=== PATIENT | female | born 1990 | race Caucasian/White ===

== ENCOUNTER 2016-05-31 18:04 | Inpatient (IN) | payer OTHER ==
[~2016-05-31] VITALS: Ht 180.3 cm; Wt 68.1 kg
[2016-05-31] MEDS ORDERED: [UNRECOGNIZED DRUG - CODE] GT (18:32)
[2016-05-31] MEDS ORDERED: OMEP40CA2 PO (18:32)
[2016-05-31] MEDS ORDERED: MULT1TAB10 PO (18:32)
[2016-05-31] MEDS ORDERED: DULO30CA PO (18:32)
[2016-05-31] MEDS ORDERED: TRAZ100T4 PO (18:32)
[2016-05-31] MEDS ORDERED: FAMO1TAB25 PO (18:32)
[2016-05-31] MEDS ORDERED: [UNRECOGNIZED DRUG - CODE] PO (20:45)
[2016-05-31] MEDS ORDERED: PATIENT COMMENT (20:45)
[2016-05-31] MEDS ORDERED: VITMTA PO (20:45)
[2016-05-31 22:07] VITALS: BP 124/80
[2016-05-31] MEDS ORDERED: traZODone 50 MG TAB PO PRN (23:45)
[2016-05-31] MEDS ORDERED: ACETAMINOPHEN TAB 650MG DOSE (2X325MG) PO PRN (23:45)
[2016-05-31] MEDS ORDERED: MAALOX 30 ML SUSP *UDC PO PRN (23:45)
[2016-05-31] MEDS ORDERED: MOM 30ML SUSPENSION UDC PO PRN (23:45)
[2016-06-01 06:14] VITALS: BP 101/57
[2016-06-01] MEDS: TRINESSA LO PO SCH (09:00)
--- NOTE | 2016-06-01 09:25 | HPEPDOC ---
Medical History and Physical Date of Admission May 31, 2016 at 21:54 History and Physical PCP: Alo LOPEZ ATTENDING: Dr. Sarthak Song HPI: 25yoF admitted to [facility] for unspecified depressive disorder, being medically examined today. No acute medical complaints today. Denies any fevers, chills, weakness, fatigue, ADAMS, CP, SOB, cough, palpitations, abdominal pain, N/V /D or changes in bowel or bladder habits. PMHx: Depression Anxiety H/O SI GERD Insomnia Crohn's disease. Dr. Telles IBS Fibromyalgia Tobacco use PSHX: Denies SOCHX: Resides in: [facility] Marital Status: Single Kids: None Employment: Convenience store employee Tobacco use: One half pack per day ETOH: Patient is reluctant to answer, endorses 2 times per week unknown amount. Illicit Drugs: Denies IV Drug Use: Denies Tattoos done unprofessionally: Denies FAMHX: Mother: Alive,MS Father: Unknown Siblings: One sister Alive, well Children: None Unexpected deaths due to medical reasons: None. ROS: As noted in HPI, otherwise 11pt ROS of systems reviewed and remarkable only for LMP unknown. PE: GEN: 25yoF, appears stated age. Well-nourished, well developed. No acute distress. Alert and oriented x 3. Pt with flat affect and reluctant to make eye contact. Reluctant to answer questions. HEENT: Normocephalic, atraumatic. Pupils are equal, round, and reactive to light. Extraocular movements are intact. No nystagmus appreciated. Sclera are nonicteric. Conjunctiva without injection. Nose midline. Nasal turbinates without bogginess. EACs both patent BL. TMs both visualized and clarke with good cone of light, no bulging or erythema. No facial asymmetry. Moist mucous membranes. Dentition fair. Pharynx pink and moist, no cobblestoning. Neck supple , trachea midline. No lymphadenopathy or thyromegaly appreciated. CHEST: Regular rate and rhythm, +S1, +S2 LUNGS: Clear to auscultation bilaterally. No wheezes, rales, or rhonchi. Breathing appears symmetric and easy. Patient is speaking in full sentences. No accessory muscle use. ABD: Round, soft, non-tender, non-distended. +Bowel sounds throughout. No rebound or guarding. No costovertebral angle tenderness. EXT: Pulses 2+ bilaterally dorsalis pedis and radial. No lower extremity edema appreciated. SKIN: [place], dry, warm. Capillary refill <2sec. No rashes. NEURO: Alert and oriented x 3. Cranial nerves III-XII are intact. No focal deficits appreciated. EKG: pending. A&P: 25yoF admitted to [facility] for unspecified depressive disorder 1. Psych. Plan per Psychiatry. Obtain baseline EKG to assure the safety of psychiatric medications as they can prolong the QT interval. 2. Nicotine dependence. Patch available. 3. GERD. Continue PPI/H2 aaron. 4. Follow up with PCP on discharge. 5. Crohn's disease. Continue Dipentum. Continue outpatient follow-up with Dr. Telles. 6. Med rec with pharmacy is pending this AM. 7. Staff member Nadja present throughout exam. Vital Signs Vital Signs Label Value Date Time Patient Temperature 98.7 degrees F 06/01/16613 Temperature Source Tympanic 06/01/16613 Pulse 70 06/01/1614 Respiratory Rate 18 bpm 06/01/1614 Blood Pressure Assessment 101/57 (72) 06/01/1614 Bedside Pulse Oximetry 100 % 05/31/162149 Item Value Date Time Oxygen Delivery Method Room Air 05/31/162149 Laboratory Data Labs 24H Laboratory Tests 2 05/31/16 19:32: Acetaminophen Level < 2.0L, Aspartate Amino Transf (AST/SGOT) 17, Alanine Aminotransferase (ALT/SGPT) 16, Alkaline Phosphatase 74, Total Bilirubin 0.3, Direct Bilirubin 0.1, Albumin 3.9, Albumin/Globulin Ratio 1.05, Anion Gap 3L, Calcium Level 8.9, Ethyl Alcohol Level < 0.003, Glomerular Filtration Rate > 60.0, Human Chorionic Gonadotropin, Qual NEGATIVE, Salicylates Level 2.9L, Thyroid Stimulating Hormone (TSH) 0.579, Total Protein 7.6 05/31/16 20:14: Urine Amphetamines Screen NEGATIVE, Urine Benzodiazepines Screen NEGATIVE, Urine Opiates Screen NEGATIVE, Urine Barbiturates Screen NEGATIVE, Urine Cannabinoids Screen NEGATIVE, Urine Cocaine Metabolite Screen NEGATIVE, Urine Methadone Screen NEGATIVE, Urine Phencyclidine Screen NEGATIVE CBC/BMP Laboratory Tests 05/31/16 19:32 Red Blood Count 4.42, Mean Corpuscular Volume 88.8, Mean Corpuscular Hemoglobin 30.2, Mean Corpuscular Hemoglobin Concent 34.0, Red Cell Distribution Width 11.9 Home Medications Scheduled Duloxetine Hcl (Cymbalta) Unknown Strength Cap Unknown Dose PO DAILY Famotidine (Famotidine) Unknown Strength Tab Unknown Dose PO QHS Multivitamins *SMC STOCKED* (Thera M Plus *SMC STOCKED*) 1 Tab Tab 1 TAB PO DAILY Olsalazine Sodium (Dipentum) 250 Mg Cap 500 MG PO BID Omeprazole (Omeprazole) Unknown Strength Cap Unknown Dose PO DAILY Trazodone HCl (Trazodone HCl) Unknown Strength Tab Unknown Dose PO QHS Miscellaneous Medications ([Patient Comment]) PATIENT IS UNSURE OF ALL MEDICATIONS AND STRENGTHS. PHARMACY CLOSED AT TIME OF ADMISSION, WILL CALL 06/01/16 TO VERIFY Allergies Coded Allergies: No Known Drug Allergy (Verified Allergy, Unknown, 05/31/16) Meche Trivedi Jun 01, 2016 09:25
[2016-06-01] MEDS ORDERED: BUPR150T5 PO (09:55)
[2016-06-01] MEDS ORDERED: DULO1CAP2 PO (09:59)
[2016-06-01] MEDS ORDERED: OLAN2.5T PO (09:59)
[2016-06-01] MEDS ORDERED: PRAZ2CAP PO (09:59)
[2016-06-01] MEDS ORDERED: TRIN1TAB2 PO (09:59)
[2016-06-01] MEDS ORDERED: FAMO1TAB11 PO (09:59)
[2016-06-01] MEDS ORDERED: DICY10CA13 PO (10:02)
[2016-06-01] MEDS: NICOTINE 14 MG/24 HR TRANSDERMAL TD SCH (10:07)
[2016-06-01] MEDS ORDERED: DICYCLOMINE 10 MG CAP PO PRN (11:45)
[2016-06-01] MEDS: MULTIVITAMINS/MINERALS THERAP 1 TAB PO SCH (11:57)
[2016-06-01] MEDS: OMEPRAZOLE 20 MG CAP PO SCH (11:57)
[2016-06-01 12:26] VITALS: BP 121/68
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
[2016-06-01] MEDS: PARoxetine 12.5 MG **CR** TAB PO SCH (13:28)
[2016-06-01] MEDS: DIPENTUM PO SCH (18:00)
[2016-06-01 18:06] VITALS: BP 100/59
[2016-06-01 21:00] VITALS: BP 114/64
[2016-06-01] MEDS: FAMOTIDINE 20 MG TAB PO SCH (21:47)
--- NOTE | 2016-06-01 22:20 | ECGEPIP ---
Stationary ECG Study [facility] Test Date: 2016-06-01 Pat Name: FIORELLA ALVARADO Department: Room: [place] [address] Gender: F Teletypewriter Operator: ADEOLA : 1990 Requested By: Meche Trivedi Order Number: [id number] Reading MD: Sarthak Lund Measurements Intervals [place] Rate: 71 P: 35 MD: 181 QRS: 60 QRSD: 80 T: 42 QT: 380 QTc: 415 Interpretive Statements SINUS RHYTHM WITH SINUS ARRHYTHMIA Poor R-wave progression, low voltages. No prior ECG available for comparison at the time of interpretation. Electronically Signed On 06-01-2016 22:20:17 EDT by Sarthak Lund
[2016-06-02 06:29] VITALS: BP 115/57
[2016-06-02] MEDS: PARoxetine 12.5 MG **CR** TAB PO SCH (09:29)
[2016-06-02] MEDS: MULTIVITAMINS/MINERALS THERAP 1 TAB PO SCH (09:29)
[2016-06-02] MEDS: NICOTINE 14 MG/24 HR TRANSDERMAL TD SCH (09:29)
[2016-06-02] MEDS: OMEPRAZOLE 20 MG CAP PO SCH (09:29)
[2016-06-02] MEDS: TRINESSA LO PO SCH (09:30)
[2016-06-02] MEDS: DIPENTUM PO SCH ×2 (09:30→17:21)
--- NOTE | 2016-06-02 17:51 | IPNPDOC ---
[facility] Progress Note Progress Note DATE OF SERVICE: 06/02/16 INTERVAL HISTORY: Medication Side effects: Reports no side effects GI or otherwise from her Paxil Behavior: Generally preserved reclusive to her room Group Attendance: She has attended groups intermittently Psychiatric Symptom change: Currently reports no depression but affect appears to be quite depressed. She additionally reports no anxiety but appears to express quite a bit of anxiety and her physical body language VITAL SIGNS: See below. NEW TEST RESULTS: See below CURRENT MEDICATIONS: See below. MENTAL STATUS EXAMINATION: General: Well dressed with good hygiene Speech: Sparse and parsimonious Thought processes: Coherent Thought content: Reserved and difficult to ascertain Abstract reasoning, and computation: Intact Description of associations: Intact Description of abnormal or psychotic thoughts:Denies any suicidal or homicidal ideation. Denies any auditory or visual hallucinations. Does not appear to be responding to internal stimuli. Does not appear to be endorsing any bizarre or paranoid ideation. Judgment: Poor Insight: Poor Orientation: Alert and orientated 3 Recent and remote memory: Intact Attention span and concentration: Impaired Fund of knowledge: Adequate Mood: "Fine" Affect: Flat DIAGNOSES: 1. PTSD, acute. 2. Borderline personality disorder, provisional. 3. Alcohol use disorder, unspecified. ASSESSMENT: Improving on Paxil but not yet ready for discharge at this time as her mental status exam and objective findings to support her subjective experience of resolution of symptoms. Additionally inconsistencies reports increased concern among the treatment team. MANAGEMENT PLAN: Medications: Increase Paxil CR to 25 mg daily Psychotherapy: Encourage groups Social: Increase social collateral Misc: None Disposition: Patient will need further inpatient time to further address her very serious safety situation and an increasing amount collateral information to support the patient is at very high risk of repeated suicide attempt. TIME SPENT: 15 minutes. Vital Signs Vital Signs Date Time Temp Pulse Resp B/P Pulse Ox O2 Delivery O2 Flow Rate FiO2 06/02/16 06:29 98.1 67 14 115/57 05/31/16 21:50 100 Room Air Current Medications Current Medications Acetaminophen (Tylenol Tab) 650 mg Q6HP PRN PO HEADACHE or DISCOMFORT; Start at 23:45; Stop 06/30/16 at 23:44 Al Hydrox/Mg Hydrox/Simethicone (Mylanta) 30 ml Q4HP PRN PO HEARTBURN/ INDIGESTION; Start 05/31/16 at 23:45; Stop 06/30/16 at 23:44 Dicyclomine HCl (Bentyl) 10 mg TID PRN PO ABDOMINAL PAIN; Start 06/01/16 at 11: 45; Stop 07/01/16 at 11:44 Famotidine (Pepcid) 20 mg QHS PO Last administered on 06/01/16 21:47; Start 06/01/16 at 21:00; Stop 07/01/16 at 20:59 Home Med (Med Rec Complete!) ASDIRECTED XX ; Start 05/31/16 at 21:00; Stop at 21:00; Status DC Home Med (Med Rec Complete!) ASDIRECTED XX ; Start 06/01/16 at 10:15; Stop at 10:15; Status DC Magnesium Hydroxide (Milk Of Magnesia) 30 ml DAILYPRN PRN PO CONSTIPATION; Start 05/31/16 at 23:45; Stop 06/30/16 at 23:44 Miscellaneous (Unresolved Patient Own Med Order) SEE LABEL COMMENTS UNRESOLVED XX ; Start 06/01/16 at 00:01; Stop 07/01/16 at 00:00 Multivitamins (Theragram-M) 1 tab DAILY PO Last administered on 06/02/16 09:29 ; Start 06/01/16 at 09:00; Stop 07/01/16 at 08:59 Nicotine (Nicoderm Cq 14mg) 1 patch DAILY TD Last administered on 06/02/16 09: 29; Start 06/01/16 at 09:00; Stop 07/01/16 at 08:59 Omeprazole (PriLOSEC) 40 mg DAILY PO Last administered on 06/02/16 09:29; Start 06/01/16 at 09:00; Stop 07/01/16 at 08:59 Paroxetine HCl (PAXil CR) 12.5 mg DAILY PO Last administered on 06/02/16 09:29 ; Start 06/01/16 at 09:00; Stop 07/01/16 at 08:59 Patient Own Medication (Patient'S Own Med) 1 TABLET DAILY PO Last administered on 06/02/16 09:30; Start 06/01/16 at 09:00; Stop 07/01/16 at 08:59 Patient Own Medication (Patient'S Own Med) 500MG = 2 CAPS BID@08,18 PO Last administered on 06/02/16 17:21; Start 06/01/16 at 18:00; Stop 07/01/16 at 17:59 Trazodone HCl (Desyrel) 50 mg QHSP PRN PO INSOMNIA Last administered on 21:47; Start 05/31/16 at 23:45; Stop 06/30/16 at 23:44 Allergies Coded Allergies: No Known Drug Allergy (Verified Allergy, Unknown, 05/31/16) GME ATTESTATION My preceptor for this patient encounter was physically present in the building during the encounter and was fully available. As needed, all aspects of the patient interview, examination, medical decision making process, and medical care plan development were reviewed and approved by the preceptor. Preceptor is aware and concurs with the plan as stated in the body of this note and will attest to such by his/her cosignature. REGINA CORTES DO Jun 02, 2016 17:51
[2016-06-02 18:00] VITALS: BP 122/77
[2016-06-02] MEDS: FAMOTIDINE 20 MG TAB PO SCH (21:25)
[2016-06-03 06:18] VITALS: BP 90/44
[2016-06-03] MEDS ORDERED: PARoxetine 12.5 MG **CR** TAB PO SCH ×3 (09:00)
[2016-06-03] MEDS ORDERED: PARoxetine 25 MG CR TAB (PAXIL CR) PO SCH (09:00)
[2016-06-03] MEDS: MULTIVITAMINS/MINERALS THERAP 1 TAB PO SCH (09:20)
[2016-06-03] MEDS: OMEPRAZOLE 20 MG CAP PO SCH (09:20)
[2016-06-03] MEDS: NICOTINE 14 MG/24 HR TRANSDERMAL TD SCH (09:20)
[2016-06-03] MEDS: TRINESSA LO PO SCH (09:21)
[2016-06-03] MEDS: DIPENTUM PO SCH ×2 (09:21→18:00)
--- NOTE | 2016-06-03 17:42 | IPNPDOC ---
[facility] Progress Note Progress Note DATE OF SERVICE: 06/03/16 HISTORY: 25-year-old patient who was admitted for severe depression and suicidal ideation, has been in treatment with Paxil CR 25 mg by mouth daily but today that those was increased to 37.5 mg by mouth daily because she is still very depressed, remains in her room and although she has been attending occasionally some of the groups, prefers to stay alone. She has a history of GI problems and today she has been feeling nauseous and has vomited during the morning hours VITAL SIGNS: See below. NEW TEST RESULTS: None CURRENT MEDICATIONS: See below. MENTAL STATUS EXAMINATION: Patient is a 25-year old female, who looks stated age, dressed in hospital clothes, remains isolated in her room with poor attendance to groups and refuses to socialize with other patients because she feels very depressed. Speech: She speaks very little, the volume of her voice is low, speaks slowly, and there is no circumstantiality or tangentiality Language skills are fair. Thought processes including: Linear. Thought content: Fair for Abstract reasoning, and computation: . Description of associations: No loosening of associations Description of abnormal or psychotic thoughts: She doesn't present delusional thoughts or hallucinations. She she is not responding to internal stimuli. Judgment: Limited Insight: Limited Orientation: Oriented 3 Recent and remote memory: Intact Attention span and concentration: Poor Language: Fair. Fund of knowledge: Average. Mood: Depressed. Affect: Depressed. DIAGNOSES: 1. PTSD 2. R/O Borderline personality disorder 3. Alcohol abuse ASSESSMENT: Daisy continues to be very depressed. Today she received a visit of her mother and her sister and that seemed to help her with her mood. It is expected that the new dose of Paxil will help her to improve her mood. MANAGEMENT PLAN: Continue the inpatient mental health unit with medications, attending groups and psychotherapy until she gets stabilized TIME SPENT: 15 minutes. Vital Signs Vital Signs Date Time Temp Pulse Resp B/P Pulse Ox O2 Delivery O2 Flow Rate FiO2 06/03/16 06:18 98.3 64 18 90/44 05/31/16 21:50 100 Room Air Current Medications Current Medications Acetaminophen (Tylenol Tab) 650 mg Q6HP PRN PO HEADACHE or DISCOMFORT; Start at 23:45; Stop 06/30/16 at 23:44 Al Hydrox/Mg Hydrox/Simethicone (Mylanta) 30 ml Q4HP PRN PO HEARTBURN/ INDIGESTION; Start 05/31/16 at 23:45; Stop 06/30/16 at 23:44 Dicyclomine HCl (Bentyl) 10 mg TID PRN PO ABDOMINAL PAIN; Start 06/01/16 at 11: 45; Stop 07/01/16 at 11:44 Famotidine (Pepcid) 20 mg QHS PO Last administered on 06/02/16 21:25; Start 06/01/16 at 21:00; Stop 07/01/16 at 20:59 Home Med (Med Rec Complete!) ASDIRECTED XX ; Start 05/31/16 at 21:00; Stop at 21:00; Status DC Home Med (Med Rec Complete!) ASDIRECTED XX ; Start 06/01/16 at 10:15; Stop at 10:15; Status DC Magnesium Hydroxide (Milk Of Magnesia) 30 ml DAILYPRN PRN PO CONSTIPATION; Start 05/31/16 at 23:45; Stop 06/30/16 at 23:44 Miscellaneous (Unresolved Patient Own Med Order) SEE LABEL COMMENTS UNRESOLVED XX ; Start 06/01/16 at 00:01; Stop 06/03/16 at 10:39; Status DC Multivitamins (Theragram-M) 1 tab DAILY PO Last administered on 06/03/16 09:20 ; Start 06/01/16 at 09:00; Stop 07/01/16 at 08:59 Nicotine (Nicoderm Cq 14mg) 1 patch DAILY TD Last administered on 06/03/16 09: 20; Start 06/01/16 at 09:00; Stop 07/01/16 at 08:59 Omeprazole (PriLOSEC) 40 mg DAILY PO Last administered on 06/03/16 09:20; Start 06/01/16 at 09:00; Stop 07/01/16 at 08:59 Paroxetine HCl (PAXil CR) 12.5 mg DAILY PO Last administered on 06/02/16 09:29 ; Start 06/01/16 at 09:00; Stop 06/02/16 at 17:52; Status DC Paroxetine HCl (PAXil CR) 12.5 mg DAILY PO Last administered on 06/03/16 14:06 ; Start 06/03/16 at 09:00; Stop 06/03/16 at 17:27; Status DC Paroxetine HCl (PAXil CR) 25 mg DAILY PO Last administered on 06/03/16 14:06; Start 06/03/16 at 09:00; Stop 06/03/16 at 17:27; Status DC Paroxetine HCl (PAXil CR) 25 mg DAILY PO ; Start 06/03/16 at 09:00; Stop 07/03/16 at 08:59; Status Cancel Paroxetine HCl (PAXil CR) 37.5 mg DAILY PO ; Start 06/03/16 at 09:00; Stop at 12:47; Status DC Paroxetine HCl (PAXil CR) 37.5 mg DAILY PO ; Start 06/04/16 at 09:00; Stop at 08:59 Patient Own Medication (Patient'S Own Med) 1 TABLET DAILY PO Last administered on 06/03/16 09:21; Start 06/01/16 at 09:00; Stop 07/01/16 at 08:59 Patient Own Medication (Patient'S Own Med) 500MG = 2 CAPS BID@08,18 PO Last administered on 06/03/16 09:21; Start 06/01/16 at 18:00; Stop 07/01/16 at 17:59 Trazodone HCl (Desyrel) 50 mg QHSP PRN PO INSOMNIA Last administered on 21:47; Start 05/31/16 at 23:45; Stop 06/30/16 at 23:44 Allergies Coded Allergies: No Known Drug Allergy (Verified Allergy, Unknown, 05/31/16) LAURA BANGURA MD Jun 03, 2016 17:42
[2016-06-03 18:00] VITALS: BP 134/74
[2016-06-03] MEDS: FAMOTIDINE 20 MG TAB PO SCH (23:10)
[2016-06-04 06:57] VITALS: BP 112/57
[2016-06-04] MEDS: MULTIVITAMINS/MINERALS THERAP 1 TAB PO SCH (09:13)
[2016-06-04] MEDS: OMEPRAZOLE 20 MG CAP PO SCH (09:13)
[2016-06-04] MEDS: PARoxetine 12.5 MG **CR** TAB PO SCH (09:13)
[2016-06-04] MEDS: DIPENTUM PO SCH ×2 (09:14→18:14)
[2016-06-04] MEDS: TRINESSA LO PO SCH (09:14)
[2016-06-04] MEDS: NICOTINE 14 MG/24 HR TRANSDERMAL TD SCH (09:14)
[2016-06-04 12:00] VITALS: BP 111/60
[2016-06-04 18:00] VITALS: BP 121/62
[2016-06-04] MEDS: FAMOTIDINE 20 MG TAB PO SCH (21:45)
--- NOTE | 2016-06-05 04:52 | IPN ---
DATE OF SERVICE: 06/04/2016 The patient states that "I'm doing better." She says she is not feeling depressed. She is not feeling suicidal. She says she slept good. She has no complaints. MENTAL STATUS EXAMINATION: She is alert and oriented times three. Eye contact is fair. Psychomotor activity is normal. There is no formal thought disorder noted. She is verbally spontaneous. She says her mood is good. Affect is consticted, but appropriate to her mood. She is not psychotic. She is denying suicidal, homicidal ideation. Concentration is fair. Memory is intact. Insight and judgment fair. DIAGNOSES: 1. Posttraumatic stress disorder. 2. Alcohol use disorder. TREATMENT PLAN: At this point, we will continue to monitor the patient for continued elevation and stabilization of her mood and for continued resolution of suicidal ideations.
[2016-06-05 06:36] VITALS: BP 114/68
[2016-06-05] MEDS: NICOTINE 14 MG/24 HR TRANSDERMAL TD SCH (08:44)
[2016-06-05] MEDS: MULTIVITAMINS/MINERALS THERAP 1 TAB PO SCH (08:47)
[2016-06-05] MEDS: OMEPRAZOLE 20 MG CAP PO SCH (08:47)
[2016-06-05] MEDS: PARoxetine 12.5 MG **CR** TAB PO SCH (08:48)
[2016-06-05] MEDS: TRINESSA LO PO SCH (08:50)
[2016-06-05] MEDS: DIPENTUM PO SCH ×2 (08:51→18:26)
[2016-06-05 12:00] VITALS: BP 123/67
[2016-06-05 18:00] VITALS: BP 120/70
[2016-06-05 20:00] VITALS: BP 118/66
[2016-06-05] MEDS: FAMOTIDINE 20 MG TAB PO SCH (21:00)
[2016-06-06 06:44] VITALS: BP 108/69
[2016-06-06] MEDS: NICOTINE 14 MG/24 HR TRANSDERMAL TD SCH (09:00)
[2016-06-06] MEDS: MULTIVITAMINS/MINERALS THERAP 1 TAB PO SCH (09:43)
[2016-06-06] MEDS: PARoxetine 12.5 MG **CR** TAB PO SCH (09:43)
[2016-06-06] MEDS: OMEPRAZOLE 20 MG CAP PO SCH (09:43)
[2016-06-06] MEDS: TRINESSA LO PO SCH (09:44)
[2016-06-06] MEDS: DIPENTUM PO SCH ×2 (09:44→17:29)
[2016-06-06 12:00] VITALS: BP 126/76
--- NOTE | 2016-06-06 16:51 | IPNPDOC ---
[facility] Progress Note Progress Note DATE OF SERVICE: 06/06/16 INTERVAL HISTORY: Medication Side effects: The patient reports no side effects from her Paxil including GI side effects or anticholinergic side effects Behavior: Has been slightly more engaged and less reclusive with her door open more often Group Attendance: Does attend groups infrequently Psychiatric Symptom change: Reports that her depression and anxiety are resolved VITAL SIGNS: See below. NEW TEST RESULTS: See below CURRENT MEDICATIONS: See below. MENTAL STATUS EXAMINATION: General: Well dressed with good hygiene Speech: Spontaneous and fluid Thought processes: Coherent Thought content: Future orientated Abstract reasoning, and computation: Intact Description of associations: Intact Description of abnormal or psychotic thoughts:Denies any suicidal or homicidal ideation. Denies any auditory or visual hallucinations. Does not appear to be responding to internal stimuli. Does not appear to be endorsing any bizarre or paranoid ideation. Judgment: Fair Insight: Fair Orientation: Alert and orientated 3 Recent and remote memory: Intact Attention span and concentration: Intact Fund of knowledge: Adequate Mood: "Fine I guess" Affect: Mildly dysthymic with constricted range DIAGNOSES: 1. PTSD, acute. 2. Borderline personality disorder, provisional. 3. Alcohol use disorder, severe. ASSESSMENT: Improving nearing stability MANAGEMENT PLAN: Medications: Continue Paxil controlled release 37.5 mg daily Psychotherapy: Encourage groups Social: Planning discharge tomorrow we'll have family meeting with friend who will stay with the patient for several days to ensure her stability. Education will be given about when to bring the patient back for evaluation should she attempt overdose again due to concerns that the friend had convinced the patient not to present the emergency room several times before. Misc: None Disposition: The patient will need of further inpatient stay to address disposition needs and safety planning. TIME SPENT: 15 minutes. Vital Signs Vital Signs Date Time Temp Pulse Resp B/P Pulse Ox O2 Delivery O2 Flow Rate FiO2 06/06/16 12:00 98.4 66 16 126/76 06/04/16 18:00 Room Air 05/31/16 21:50 100 Current Medications Current Medications Acetaminophen (Tylenol Tab) 650 mg Q6HP PRN PO HEADACHE or DISCOMFORT; Start at 23:45; Stop 06/30/16 at 23:44 Al Hydrox/Mg Hydrox/Simethicone (Mylanta) 30 ml Q4HP PRN PO HEARTBURN/ INDIGESTION; Start 05/31/16 at 23:45; Stop 06/30/16 at 23:44 Dicyclomine HCl (Bentyl) 10 mg TID PRN PO ABDOMINAL PAIN; Start 06/01/16 at 11: 45; Stop 07/01/16 at 11:44 Famotidine (Pepcid) 20 mg QHS PO Last administered on 06/04/16 21:45; Start 06/01/16 at 21:00; Stop 07/01/16 at 20:59 Home Med (Med Rec Complete!) ASDIRECTED XX ; Start 05/31/16 at 21:00; Stop at 21:00; Status DC Home Med (Med Rec Complete!) ASDIRECTED XX ; Start 06/01/16 at 10:15; Stop at 10:15; Status DC Magnesium Hydroxide (Milk Of Magnesia) 30 ml DAILYPRN PRN PO CONSTIPATION; Start 05/31/16 at 23:45; Stop 06/30/16 at 23:44 Miscellaneous (Unresolved Patient Own Med Order) SEE LABEL COMMENTS UNRESOLVED XX ; Start 06/01/16 at 00:01; Stop 06/03/16 at 10:39; Status DC Multivitamins (Theragram-M) 1 tab DAILY PO Last administered on 06/06/16 09:43 ; Start 06/01/16 at 09:00; Stop 07/01/16 at 08:59 Nicotine (Nicoderm Cq 14mg) 1 patch DAILY TD Last administered on 06/04/16 09: 14; Start 06/01/16 at 09:00; Stop 07/01/16 at 08:59 Omeprazole (PriLOSEC) 40 mg DAILY PO Last administered on 06/06/16 09:43; Start 06/01/16 at 09:00; Stop 07/01/16 at 08:59 Paroxetine HCl (PAXil CR) 12.5 mg DAILY PO Last administered on 06/02/16 09:29 ; Start 06/01/16 at 09:00; Stop 06/02/16 at 17:52; Status DC Paroxetine HCl (PAXil CR) 12.5 mg DAILY PO Last administered on 06/03/16 14:06 ; Start 06/03/16 at 09:00; Stop 06/03/16 at 17:27; Status DC Paroxetine HCl (PAXil CR) 25 mg DAILY PO Last administered on 06/03/16 14:06; Start 06/03/16 at 09:00; Stop 06/03/16 at 17:27; Status DC Paroxetine HCl (PAXil CR) 25 mg DAILY PO ; Start 06/03/16 at 09:00; Stop 07/03/16 at 08:59; Status Cancel Paroxetine HCl (PAXil CR) 37.5 mg DAILY PO ; Start 06/03/16 at 09:00; Stop at 12:47; Status DC Paroxetine HCl (PAXil CR) 37.5 mg DAILY PO Last administered on 06/06/16 09:43 ; Start 06/04/16 at 09:00; Stop 07/04/16 at 08:59 Patient Own Medication (Patient'S Own Med) 1 TABLET DAILY PO Last administered on 06/06/16 09:44; Start 06/01/16 at 09:00; Stop 07/01/16 at 08:59 Patient Own Medication (Patient'S Own Med) 500MG = 2 CAPS BID@08,18 PO Last administered on 06/06/16 09:44; Start 06/01/16 at 18:00; Stop 07/01/16 at 17:59 Trazodone HCl (Desyrel) 50 mg QHSP PRN PO INSOMNIA Last administered on 21:47; Start 05/31/16 at 23:45; Stop 06/30/16 at 23:44 Allergies Coded Allergies: No Known Drug Allergy (Verified Allergy, Unknown, 05/31/16) GME ATTESTATION My preceptor for this patient encounter was physically present in the building during the encounter and was fully available. As needed, all aspects of the patient interview, examination, medical decision making process, and medical care plan development were reviewed and approved by the preceptor. Preceptor is aware and concurs with the plan as stated in the body of this note and will attest to such by his/her cosignature. REGINA CORTES DO Jun 06, 2016 16:51
[2016-06-06 18:00] VITALS: BP 123/58
[2016-06-06 21:00] VITALS: BP 124/68
[2016-06-06] MEDS: FAMOTIDINE 20 MG TAB PO SCH (21:46)
[2016-06-07 06:18] VITALS: BP 123/82
[2016-06-07] MEDS: MULTIVITAMINS/MINERALS THERAP 1 TAB PO SCH (08:31)
[2016-06-07] MEDS: DIPENTUM PO SCH (08:31)
[2016-06-07] MEDS: OMEPRAZOLE 20 MG CAP PO SCH (08:31)
[2016-06-07] MEDS: PARoxetine 12.5 MG **CR** TAB PO SCH (08:31)
[2016-06-07] MEDS: TRINESSA LO PO SCH (08:32)
[2016-06-07] MEDS: NICOTINE 14 MG/24 HR TRANSDERMAL TD SCH (08:33)
[2016-06-07] MEDS ORDERED: PARO12.5 PO (10:44)
[2016-06-07] MEDS ORDERED: NICO14PA TD (11:13)
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
== END 2016-06-07 12:05 | disposition home or self-care (01) | DRG 751 ==
LOC: M ED 19:42 → M ED INP 21:54 → M PSY 22:00
PROVIDERS: ADMIT Psychiatry & Neurology Psychiatry; ATTEND Psychiatry & Neurology Psychiatry
DX: F33.1 Major depressive disorder, recurrent, moderate (principal); F60.3 Borderline personality disorder; F17.200 Nicotine dependence, unspecified, uncomplicated; Z79.899 Other long term (current) drug therapy; F43.10 Post-traumatic stress disorder, unspecified; K21.9 Gastro-esophageal reflux disease without esophagitis; G47.00 Insomnia, unspecified; M79.7 Fibromyalgia; K50.90 Crohn's disease, unspecified, without complications

== ENCOUNTER → 2019-03-11 | Outpatient (REF) | payer OTHER ==
[~2019-03-11] MED LIST: BUPR150T5 PO; DICY10CA13 PO; DULO1CAP5 PO; DULO30CA9 PO; FAMO1TAB11 PO; FAMO1TAB25 PO; MULT1TAB10 PO; NICO14PA TD; OLAN2.5T25 PO; OMEP40CA97 PO; PARO12.510 PO; PATIENT COMMENT; PRAZ2CAP PO; TRAZ-257 PO; TRIN1TAB2 PO; VITMTA PO; [UNRECOGNIZED DRUG - CODE] GT; [UNRECOGNIZED DRUG - CODE] PO
== END ==
LOC: M LAB LCGH 11:57
PROVIDERS: ATTEND Physician Assistant
DX: Z01.419 Encounter for gynecological examination (general) (routine) without abnormal findings (principal)

== ENCOUNTER → 2020-02-20 | Outpatient (CLI) | payer OTHER ==
[~2020-02-20] MED LIST changes: +D31000TA2 PO; +GABA-843 PO; +GABA600T4 PO; +HYDR-643 PO; +META28.32 PO; +SERT50TA29 PO; +THERTAB52 PO; +TRAZ-252 PO; +ZOFR4TAB16 PO
== END ==
LOC: M LABSMTC 11:21
PROVIDERS: ATTEND Anesthesiology
DX: Z01.812 Encounter for preprocedural laboratory examination (principal); Z20.828 Contact with and (suspected) exposure to other viral communicable diseases

== ENCOUNTER 2020-02-25 11:09 | Day surgery (SDC) | payer OTHER ==
[~2020-02-25] VITALS: Ht 180.3 cm; Wt 65.3 kg
[~2020-02-25 11:09] MED LIST changes: +LIDOCAINE 2% 100MG/5ML SDV (FOR ANES.) As Ordered ONE; +NS 1,000 ML IV ONE; +fentaNYL 100 MCG/2 ML INJECTION (J3010) As Ordered ONE; +propofoL 200 MG/20 ML VIAL As Ordered ONE
--- NOTE | 2020-02-25 12:45 | ROOR ---
Patient Name: Daisy Osborn Procedure Date: 02/25/2020 12:26 PM Date of : 1990 Age: 29 Room: [facility] Gender: Female Note Status: Finalized Procedure: Upper GI endoscopy Indications: Dyspepsia, Heartburn Providers: Tavo Muñoz MD Referring MD: JESSICA Mortensen Requesting Provider: Medicines: Monitored Anesthesia Care Complications: No immediate complications. Procedure: Pre-Anesthesia Assessment: - Prior to the procedure, a History and Physical was performed, and patient medications and allergies were reviewed. The patient is competent. The risks and benefits of the procedure and the sedation options and risks were discussed with the patient. All questions were answered and informed consent was obtained. Patient identification and proposed procedure were verified by the physician, the nurse and the anesthesiologist in the procedure room. Mental Status Examination: alert and oriented. Airway Examination: normal oropharyngeal airway and neck mobility. Respiratory Examination: clear to auscultation. CV Examination: normal. Prophylactic Antibiotics: The patient does not require prophylactic antibiotics. Prior Anticoagulants: The patient has taken no previous anticoagulant or antiplatelet agents. ASA Grade Assessment: II - A patient with mild systemic disease. After reviewing the risks and benefits, the patient was deemed in satisfactory condition to undergo the procedure. The anesthesia plan was to use monitored anesthesia care (MAC). Immediately prior to administration of medications, the patient was re-assessed for adequacy to receive sedatives. The heart rate, respiratory rate, oxygen saturations, blood pressure, adequacy of pulmonary ventilation, and response to care were monitored throughout the procedure. The physical status of the patient was re-assessed after the procedure. The Endoscope was introduced through the mouth, and advanced to the second part of duodenum. The upper GI endoscopy was accomplished without difficulty. The patient tolerated the procedure well. Findings: The examined esophagus was normal. The Z-line was regular and was found 42 cm from the incisors. Scattered mild inflammation characterized by erythema and granularity was found in the gastric antrum. Biopsies were taken with a cold forceps for Helicobacter pylori testing. Verification of patient identification for the specimen was done by the physician and nurse using the patient's name, date and medical record number. Estimated blood loss was minimal. The duodenal bulb and second portion of the duodenum were normal. Biopsies for histology were taken with a cold forceps for evaluation of celiac disease. Impression: - Normal esophagus. - Z-line regular, 42 cm from the incisors. - Gastritis. Biopsied. - Normal duodenal bulb and second portion of the duodenum. Biopsied. Recommendation: - Patient has a contact number available for emergencies. The signs and symptoms of potential delayed complications were discussed with the patient. Return to normal activities tomorrow. Written discharge instructions were provided to the patient. - High fiber diet. - Continue present medications. - Follow an antireflux regimen. - Await pathology results. - Telephone GI clinic for pathology results in 2 weeks. - Return to primary care physician. Procedure Code(s): --- Professional --- 24677, Esophagogastroduodenoscopy, flexible, transoral; with biopsy, single or multiple Diagnosis Code(s): --- Professional --- K29.70, Gastritis, unspecified, without bleeding R10.13, Epigastric pain R12, Heartburn CPT copyright 2019 [employer] [place] [employer]. All rights reserved. The codes documented in this report are preliminary and upon wheel loader operator review may be revised to meet current compliance requirements. Tavo Muñoz MD Tavo Muñoz MD 02/25/2020 12:44:43 PM Electronically signed by Tavo Muñoz MD Number of Addenda: 0 Note Initiated On: 02/25/2020 12:26 PM Estimated Blood Loss: Estimated blood loss was minimal.
--- NOTE | 2020-02-25 13:41 | ROOR ---
Patient Name: Daisy Osborn Procedure Date: 02/25/2020 12:28 PM Date of : 1990 Age: 29 Room: [facility] Gender: Female Note Status: Finalized Procedure: Colonoscopy Indications: Screening for colorectal malignant neoplasm Providers: Tavo Muñoz MD Referring MD: JESSICA Mortensen Requesting Provider: Medicines: Monitored Anesthesia Care Complications: No immediate complications. Procedure: Pre-Anesthesia Assessment: - Prior to the procedure, a History and Physical was performed, and patient medications and allergies were reviewed. The patient is competent. The risks and benefits of the procedure and the sedation options and risks were discussed with the patient. All questions were answered and informed consent was obtained. Patient identification and proposed procedure were verified by the physician, the nurse and the anesthesiologist in the procedure room. Mental Status Examination: alert and oriented. Airway Examination: normal oropharyngeal airway and neck mobility. Respiratory Examination: clear to auscultation. CV Examination: normal. Prophylactic Antibiotics: The patient does not require prophylactic antibiotics. Prior Anticoagulants: The patient has taken no previous anticoagulant or antiplatelet agents. ASA Grade Assessment: II - A patient with mild systemic disease. After reviewing the risks and benefits, the patient was deemed in satisfactory condition to undergo the procedure. The anesthesia plan was to use monitored anesthesia care (MAC). Immediately prior to administration of medications, the patient was re-assessed for adequacy to receive sedatives. The heart rate, respiratory rate, oxygen saturations, blood pressure, adequacy of pulmonary ventilation, and response to care were monitored throughout the procedure. The physical status of the patient was re-assessed after the procedure. The Colonoscope was introduced through the anus and advanced to the terminal ileum, with identification of the appendiceal orifice and IC valve. The colonoscopy was performed without difficulty. The patient tolerated the procedure well. The quality of the bowel preparation was good. The terminal ileum, ileocecal valve, appendiceal orifice, and rectum were photographed. Scope insertion time was 3 minutes. Scope withdrawal time was 9 minutes. The total duration of the procedure was 12 minutes. Findings: The perianal and digital rectal examinations were normal. A scattered area of mucosa in the terminal ileum was mildly erythematous. Biopsies were taken with a cold forceps for histology. Three sessile polyps were found in the recto-sigmoid colon, ascending colon and cecum. The polyps were 4 to 6 mm in size. These polyps were removed with a cold snare. Resection and retrieval were complete. Verification of patient identification for the specimen was done by the physician and nurse using the patient's name, date and medical record number. Estimated blood loss was minimal. Non-bleeding external and internal hemorrhoids were found during retroflexion. The hemorrhoids were small. There is no endoscopic evidence of colitis in the entire colon. Impression: - Erythematous mucosa in the terminal ileum. Biopsied. - Three 4 to 6 mm polyps at the recto-sigmoid colon, in the ascending colon and in the cecum, removed with a cold snare. Resected and retrieved. - Non-bleeding external and internal hemorrhoids. Recommendation: - Patient has a contact number available for emergencies. The signs and symptoms of potential delayed complications were discussed with the patient. Return to normal activities tomorrow. Written discharge instructions were provided to the patient. - High fiber diet. - Continue present medications. - Await pathology results. - Repeat colonoscopy in 3 - 5 years for surveillance based on pathology results. - Telephone GI clinic for pathology results in 2 weeks. - Return to primary care physician. Procedure Code(s): --- Professional --- 50476, Colonoscopy, flexible; with removal of tumor(s), polyp(s), or other lesion(s) by snare technique 04184, 59, Colonoscopy, flexible; with biopsy, single or multiple Diagnosis Code(s): --- Professional --- Z12.11, Encounter for screening for malignant neoplasm of colon K63.89, Other specified diseases of intestine K63.5, Polyp of colon K64.8, Other hemorrhoids CPT copyright 2019 [employer]. All rights reserved. The codes documented in this report are preliminary and upon training and development manager review may be revised to meet current compliance requirements. Tavo Muñoz MD Tavo Muñoz MD 02/25/2020 1:41:26 PM Electronically signed by Tavo Muñoz MD Number of Addenda: 0 Note Initiated On: 02/25/2020 12:28 PM Estimated Blood Loss: Estimated blood loss was minimal.
[2020-02-25 13:49] VITALS: BP 99/53
[2020-02-25] MEDS ORDERED: propofoL 200 MG/20 ML VIAL As Ordered ONE (14:48)
== END 2020-02-25 13:56 | disposition home or self-care (01) ==
LOC: M OPP 11:09
PROVIDERS: ATTEND Internal Medicine Gastroenterology
DX: Z12.11 Encounter for screening for malignant neoplasm of colon (principal); K63.89 Other specified diseases of intestine; K63.5 Polyp of colon; K64.8 Other hemorrhoids; K29.70 Gastritis, unspecified, without bleeding; R10.13 Epigastric pain; R12 Heartburn; K21.9 Gastro-esophageal reflux disease without esophagitis; Z79.899 Other long term (current) drug therapy
CPT/HCPCS: 43239; 45380; 45385; 88305; J3010

== ENCOUNTER → 2022-08-03 | Outpatient (REF) | payer OTHER ==
[~2022-08-03] MED LIST changes: +BUPR-71 PO; -BUPR150T5 PO; -D31000TA2 PO; +FAMO10TA50 PO; -FAMO1TAB25 PO; +GABA-282 PO; -GABA-843 PO; -LIDOCAINE 2% 100MG/5ML SDV (FOR ANES.) As Ordered ONE; -NS 1,000 ML IV ONE; +OMEP40CA4 PO; -OMEP40CA97 PO; -PARO12.510 PO; +PARO12.56 PO; +VITA100093 PO; -fentaNYL 100 MCG/2 ML INJECTION (J3010) As Ordered ONE; -propofoL 200 MG/20 ML VIAL As Ordered ONE
== END ==
LOC: M SFHCWAGY 18:04
PROVIDERS: ATTEND Nurse Practitioner Family
DX: Z12.4 Encounter for screening for malignant neoplasm of cervix (principal)

== ENCOUNTER → 2024-09-16 | Outpatient (CLI) | payer OTHER ==
[~2024-09-16] MED LIST changes: +DICY-61 PO; -DICY10CA13 PO; +GABA-1172 PO; +GABA-1490 PO; -GABA-282 PO; -GABA600T4 PO; -OLAN2.5T25 PO; +OLAN2.5T53 PO
[2024-09-16 14:12] LABS: ESTIMATED AVERAGE GLUCOSE 103.0 MG/DL (60-110)
[2024-09-17 08:51] LABS: DEHYDROEPIANDROSTERONE SULFATE 43 mcg/dL (19-237)
[2024-09-18 15:38] LABS: HPV APTIMA Detected (Not Detected)
== END ==
LOC: M PLALAB 10:33
PROVIDERS: ATTEND Nurse Practitioner Family
DX: Z12.4 Encounter for screening for malignant neoplasm of cervix (principal); Z87.42 Personal history of other diseases of the female genital tract; R87.610 Atypical squamous cells of undetermined significance on cytologic smear of cervix (ASC-US)